=== PATIENT | female | born 1950 | race Caucasian/White ===

== ENCOUNTER 2021-01-11 08:29 | Emergency (ER) | payer MEDICARE, OTHER, SELFPAY ==
[2021-01-11 08:36] VITALS: BP 131/78; PULSE 76; RESP 15; TEMP 36.9; O2SAT 100; BMI 17.6
[2021-01-11 08:45] VITALS: RESP 15
--- NOTE | 2021-01-11 08:46 | W.ED.FEMALGU ---
HPI - Female Genitourinary General: Chief complaint: Urogenital-Female Stated complaint: UTI Time Seen by Provider: 01/11/21 08:34 Source: patient, family and RN notes reviewed History of Present Illness: HPI Narrative: This patient is a 70-year-old female has history of urinary tract infection diagnosed 4 days ago. Patient was placed on Bactrim at that time but states she still has urinary tract infections. Patient denies fever. Patient states that when she has urinalysis done she always has trace urine in her testing due to acute kidney injury she had years ago. We will do medical evaluation treat as needed MD elicited complaint: dysuria Associated symptoms: Deny abdominal pain, headache(s) or nausea Review of Systems General: Reports: 10 or more systems reviewed and unremarkable except in HPI and below Const: Denies: fever(s), chills, body aches or fatigue Eyes: Denies: change in vision or blurry vision ENMT: Denies: throat pain, hoarseness or mouth pain Card: Denies: chest pain, palpitations, irregular heart rhythm, edema, swelling of feet/ankles or lightheadedness Resp: Denies: dyspnea, productive cough, non-productive cough, wheezing or pain on inspiration GI: Denies: abdominal pain, nausea or vomiting : Reports: dysuria and urinary frequency; Denies: flank pain, difficulty voiding, urinary urgency or urinary hesitancy Musc: Denies: neck pain, back pain, extremity pain, extremity swelling, joint pain, joint swelling, joint redness, joint warmth or limited range of motion Skin/Breast: Denies: rash, pruritus, erythema or skin tenderness Neuro: Denies: headache(s), numbness in extremities or weakness in extremities Psych: Denies: anxiety or depression Physical Exam Const: COMMON NORMALS: no acute distress, average body habitus, patient oriented x3, no limitations, healthy appearing, alert and well nourished HENMT: COMMON NORMALS: normocephalic, atraumatic, external ears normal, EAC's normal, TM's normal bilaterally, Normal external nose present and Normal nasal mucous membranes and turbinates present HEAD & SCALP: normocephalic and atraumatic NOSE: Normal external nose present and Normal nasal mucous membranes and turbinates present EXTERNAL EAR: Yes external ears normal EXTERNAL AUDITORY CANAL: EAC's normal TYMPANIC MEMBRANE: TM's normal bilaterally Neck/C-Spine: COMMON NORMALS: full ROM, no lymphadenopathy, supple, no meningeal signs, no JVD, Thyroid normal and No carotid bruits THYROID: Thyroid normal Chest: COMMONS NORMALS: normal inspection of the chest, normal palpation of entire chest wall, normal inspection of the breasts and normal palpation of the breasts Breast/axilla inspection: Yes normal inspection of the breasts BREAST/AXILLA PALPATION: Yes normal palpation of the breasts Resp: COMMON NORMALS: normal respiratory effort, No retractions, No use of accessory muscles, clear to auscultation bilaterally and percussion normal AUSCULTATION: clear to auscultation bilaterally PERCUSSION: percussion normal Cardio: COMMON NORMALS: no JVD, regular rate, regular rhythm, S1 normal heart sound present, S2 normal heart sound present, No gallops present (Cardio), No clicks present (Cardio), No murmurs present (Cardio), No rub (Cardio) and Peripheral pulses 2+ throughout RATE: regular rate RHYTHM: regular rhythm HEART SOUNDS: S1 normal heart sound present and S2 normal heart sound present PERIPHERAL PULSES: Peripheral pulses 2+ throughout GI: COMMON NORMALS: Normal to inspection, nondistended, normoactive bowel sounds present, Soft to palpation, non-tender, No hepatosplenomegaly present, no masses and no bruits PALPATION: Yes Soft to palpation and Yes No hepatosplenomegaly present : COMMON NORMALS: Yes no CVA tenderness, Yes normal external appearance, Yes normal appearance of the vagina, Yes normal appearance of the cervix, Yes normal bimanual exam, Yes No adnexal tenderness and Yes no masses BLADDER/KIDNEY EXAM: Yes no CVA tenderness BIMANUAL EXAM - VAGINA & UTERUS: Yes normal bimanual exam Back/Pelvis: COMMON NORMALS: no CVA tenderness, thoracic and lumbar spine normal to inspection, no thoracic nor lumbar tenderness, thoraco-lumbar ROM normal and straight leg raise negative bilaterally Extremity: COMMON NORMALS: normal to inspection, full ROM, capillary refill normal, no joint enlargement, no clubbing, cyanosis or edema, no calf tenderness and no pedal edema Neuro: COMMON NORMALS: patient oriented x3 SENSORIUM/ORIENTATION: Yes alert MENINGEAL SIGNS: Yes no meningeal signs Course Reevaluation(s): Reevaluation #1: Negative acute findings urine shows a blood per patient's history. Negative otherwise for urinary tract infection. Will write a prescription for Pyridium. Time: 09:07 Vital Signs: Vital signs: Vital Signs Temperature 98.5 F 01/11/21 08:36 Pulse Rate 76 01/11/21 08:36 Respiratory Rate 15 01/11/21 08:45 Blood Pressure 131/78 01/11/21 08:36 Pulse Oximetry 100 01/11/21 08:36 MDM - Female MDM Narrative: Medical decision making narrative: Negative for urinary tract infection. Patient needs to finish her current prescription. Will write additional Pyridium. Lab Data: Attestation: I reviewed the patient's lab results. Labs: Lab Results 01/11/21 Range/Units 08:35 Urine Color Yellow (Yellow) Urine Appearance Clear (CLEAR) Urine pH 6.5 (5-7) Ur Specific Gravit y 1.010 (1.005-1.030) Urine Protein Neg (Negative) Urine Glucose (UA) Norm (Normal) Urine Ketones Negative (Negative) Urine Blood 2+ H (Negative) Urine Nitrate Negative (Negative) Urine Bilirubin 1+ H (Negative) Urine Urobilinogen Norm (Negative) mg/dL Ur Leukocyte Teresa ase Negative (Negative) Discharge Plan Discharge Patient Disposition: Home Clinical Impression: Dysuria Condition: Stable Prescriptions: New phenazopyridine [Pyridium] 100 mg tablet 100 mg PO Q8H Qty: 14 RF: 0 Discharge Orders: Discharge ED (Routine); Ordered 01/11/21 Ordered By: Freedom Landry Discharge Diet: Advance as tolerated Discharge Activity: Resume usual activity Patient Instructions: Opioid Safety Activity Restrictions/Additional Instructions: Encourage p.o. fluids. Take medications as instructed. 4 ounces of cranberry juice daily. Follow-up with PCP in 2 to 3 days. Coding Level of Care Code ED [employer] for Eyal Fwibeth Exam Comprehensive
[2021-01-11 09:04] LABS: Protein Urine Neg (Negative); Urine Appearance Clear (CLEAR); Urine Color Yellow (Yellow); pH Urine 6.5 (5-7)
[2021-01-11 09:05] LABS: Add Urine Microscopic? YES; Bilirubin Urine 1+ (Negative); Blood Urine 2+ (Negative); Glucose Urine UA Norm (Normal); Ketones Urine Negative (Negative); Leukocyte Esterase Urine Negative (Negative); Nitrate Urine Negative (Negative); Urobilinogen Urine Norm (Negative)
[2021-01-11 09:07] LABS: Bacteria Urine TRACE /hpf; Squamous Epithelial Cell Urine 0-4 /hpf (0-5)
[2021-01-11 09:08] LABS: Add Urine Culture? Yes; RBC Urine 15-25 /hpf (0-2)
[2021-01-11 09:22] VITALS: RESP 15
== END 2021-01-11 09:23 | disposition home or self-care (01) ==
PROVIDERS: Emergency Provider Emergency Medicine
DX: R30.0 Dysuria (principal)
CPT/HCPCS: 81001; 87086; 99282

== ENCOUNTER 2021-01-25 14:47 | Outpatient (CLI) | payer MEDICARE, OTHER, SELFPAY ==
--- NOTE | 2021-01-25 14:45 | XRR_ITS ---
PROCEDURE INFORMATION: Exam: XR Abdomen Exam date and time: 01/25/2021 3:10 PM Age: 70 years old Clinical indication: Pain and condition or disease; Other: UTI; Other: Flank; Prior surgery; Surgery type: Hysterectomy, right kidney ruptured; Additional info: Flank pain TECHNIQUE: Imaging protocol: XR of the abdomen. Views: Frontal supine view of the abdomen. 1 View. Total images: 1 COMPARISON: No relevant prior studies available. FINDINGS: Gastrointestinal tract: Nonobstructive bowel pattern. No visible adynamic or reactive ileus. Heavy fecal residue consistent with constipation. Organs: Potential tiny focus of nonobstructing calyceal nephrolithiasis measuring less than 3 mm equator right kidney. No visible ureterolithiasis. Bones/joints: Unremarkable for age. XR/XR KUB [id number] IMPRESSION: 1. Potential tiny focus of calyceal nephrolithiasis equator right kidney. No visible ureterolithiasis. 2. Constipation.
== END 2021-01-25 14:48 | disposition home or self-care (01) ==
LOC: RAD 14:51
PROVIDERS: PCP Urology; Visit Provider Urology
DX: R10.9 Unspecified abdominal pain (principal); K59.00 Constipation, unspecified
CPT/HCPCS: 74018; 81003; 87086

== ENCOUNTER → 2021-02-23 16:06 | Outpatient (BNVA) | payer MEDICARE, OTHER, SELFPAY | PROVIDERS: PCP Student in an Organized Health Care Education/Training Program; Visit Provider Urology | DX: R39.15 Urgency of urination (principal); R30.0 Dysuria; R31.29 Other microscopic hematuria | CPT/HCPCS: 81003; 87086; 88112 ==